=== PATIENT | male | born 1985 | race Caucasian/White ===

== ENCOUNTER 2017-04-01 16:08 | Emergency (ER) | payer MEDICAID ==
[~2017-04-01] VITALS: Ht 157.5 cm; Wt 81.8 kg
[2017-04-01] MEDS ORDERED: ONDANSETRON HCL 4MG/2ML VIAL IV ONE (17:15)
[2017-04-01] MEDS ORDERED: MORPHINE SULFATE 10 MG/ML CPJ IV ONE (17:15)
[2017-04-01 19:30] VITALS: BP 112/70
== END 2017-04-01 19:35 | disposition home or self-care (01) ==
LOC: ER 16:41
DX: S20.211A Contusion of right front wall of thorax, initial encounter (principal); J45.909 Unspecified asthma, uncomplicated; W01.0XXA Fall on same level from slipping, tripping and stumbling without subsequent striking against object, initial encounter; Y93.89 Activity, other specified; Y92.89 Other specified places as the place of occurrence of the external cause; Y99.8 Other external cause status
CPT/HCPCS: 71100; 96374; 96375; 99284; J2270; J2405; Z7610

== ENCOUNTER 2018-05-21 22:55 | Inpatient (IN) | payer MEDICAID ==
[~2018-05-21] VITALS: Ht 157.5 cm; Wt 86.2 kg
[2018-05-21] MEDS ORDERED: METHYLPREDNISOLONE SOD SUCC 125 MG/2 ML VIAL IV STA (23:12)
[2018-05-21] MEDS ORDERED: MAGNESIUM 2 G PREMIX 50 ML IV ONE (23:15)
[2018-05-21] MEDS ORDERED: IPRATROPIUM/ALBUTEROL 0.5-3(2.5)MG/3ML NEB HHN ONE (23:15)
[2018-05-21 23:52] LABS: BASOPHILS % 0.7 % (0.0-2.0); EOSINOPHILS % 2.8 % (0.0-5.0); HEMATOCRIT. 44.1 % (42.0-52.0); HEMOGLOBIN. 14.6 g/dL (14.0-18.0); LYMPHOCYTES % 15.7 % (20.0-50.0); MEAN CORPUSCULAR HEMOGLOBIN 28.7 pg (28.0-32.0); MEAN CORPUSCULAR VOLUME 86.8 fL (80.0-94.0); MEAN PLATELET VOLUME 7.5 fl (7.4-10.4); MONOCYTES % 3.6 % (2.0-8.0); NEUTROPHILS % 77.2 % (40.0-76.0); PLATELET 395 x1000/uL (130-400); RED BLOOD CELL COUNT 5.08 mill/uL (4.7-6.1); RED CELL DISTRIBUTION WIDTH 15.1 % (11.6-14.6)
[2018-05-21 23:59] LABS: CHLORIDE 106 mEq/L (98-107)
[2018-05-22] MEDS ORDERED: IPRATROPIUM/ALBUTEROL 0.5-3(2.5)MG/3ML NEB HHN ONE (00:30)
[2018-05-22] MEDS ORDERED: POTASSIUM CHLORIDE 20MEQ/PACKET PO SCH (00:45)
[2018-05-22] MEDS ORDERED: ALBUTEROL (0.083%) 2.5MG/3ML NEB HHN ONE (02:45)
[2018-05-22 08:45] VITALS: BP 107/71
[2018-05-22] MEDS ORDERED: ALBUTEROL INH (09:14)
[2018-05-22] MEDS ORDERED: FLUT1DIS3 INH (09:18)
[2018-05-22] MEDS ORDERED: P20 MT (09:18)
[2018-05-22] MEDS ORDERED: ALBU18HF2 IH (09:18)
[2018-05-22 09:39] VITALS: BP 107/71
[2018-05-22] MEDS ORDERED: AZITHROMYCIN 500 MG TABLET PO SCH (09:45)
[2018-05-22] MEDS ORDERED: IPRATROPIUM/ALBUTEROL 0.5-3(2.5)MG/3ML NEB HHN PRN (09:45)
[2018-05-22] MEDS ORDERED: GUAIFENESIN-DM 200MG-20MG/10ML UDC PO PRN (09:45)
[2018-05-22] MEDS: METHYLPREDNISOLONE SOD SUCC 40 MG/ML VIAL IV SCH ×3 (10:45→21:37)
[2018-05-22 12:00] VITALS: BP 121/78
[2018-05-22] MEDS: IPRATROPIUM/ALBUTEROL 0.5-3(2.5)MG/3ML NEB HHN SCH ×2 (14:09→20:40)
[2018-05-22 14:36] LABS: CLARITY URINE TURBID (CLEAR); COLOR URINE YELLOW (YELLOW); KETONES URINE 1+ (NEGATIVE); LEUKOCYTE ESTERASE URINE NEGATIVE (NEGATIVE); NITRITE URINE NEGATIVE (NEGATIVE); OCCULT BLOOD URINE NEGATIVE (NEGATIVE); PROTEIN URINE NEGATIVE (NEGATIVE); SPECIFIC GRAVITY URINE 1.029 (1.005-1.030); UROBILINOGEN URINE 0.2 E.U./dL (0.2-1.0)
[2018-05-22 15:21] LABS: *AMPHETAMINES SCREEN URINE NEGATIVE (NEGATIVE); *BARBITURATES SCREEN URINE NEGATIVE (NEGATIVE); *BENZODIAZEPINES SCREEN URINE NEGATIVE (NEGATIVE); *COCAINE SCREEN URINE NEGATIVE (NEGATIVE); METHADONE URINE SCREEN NEGATIVE (NEGATIVE); OPIATES URINE SCREEN NEGATIVE (NEGATIVE)
[2018-05-22 15:22] LABS: CANNABINOID URINE SCREEN PRESUMTIVE POSITIVE (NEGATIVE); PHENCYCLIDINE URINE SCREEN NEGATIVE (NEGATIVE)
[2018-05-22 16:00] VITALS: BP 128/80
[2018-05-22] MEDS: ACETAMINOPHEN 650MG/20.3ML UDC PO PRN (18:20)
[2018-05-22 20:00] VITALS: BP 115/78
[2018-05-22] MEDS: MONTELUKAST SODIUM 10MG TABLET PO SCH (21:37)
[2018-05-23] VITALS: BP 117/63
[2018-05-23] MEDS: IPRATROPIUM/ALBUTEROL 0.5-3(2.5)MG/3ML NEB HHN SCH ×6 (00:35→21:34)
[2018-05-23 04:00] VITALS: BP 114/78
[2018-05-23] MEDS: METHYLPREDNISOLONE SOD SUCC 40 MG/ML VIAL IV SCH ×3 (05:57→21:03)
[2018-05-23 07:14] LABS: BASOPHILS % 0.2 % (0.0-2.0); HEMATOCRIT. 42.9 % (42.0-52.0); HEMOGLOBIN. 14.3 g/dL (14.0-18.0); LYMPHOCYTES % 9.6 % (20.0-50.0); MEAN CORPUSCULAR HEMOGLOBIN 28.9 pg (28.0-32.0); MEAN PLATELET VOLUME 7.9 fl (7.4-10.4); MONOCYTES % 2.4 % (2.0-8.0); NEUTROPHILS % 87.8 % (40.0-76.0); PLATELET 402 x1000/uL (130-400); RED BLOOD CELL COUNT 4.93 mill/uL (4.7-6.1); RED CELL DISTRIBUTION WIDTH 15.2 % (11.6-14.6)
[2018-05-23 07:40] LABS: CHLORIDE 105 mEq/L (98-107)
[2018-05-23 08:00] VITALS: BP 116/70
[2018-05-23] MEDS: AZITHROMYCIN 250 MG TABLET PO SCH (08:25)
[2018-05-23 16:00] VITALS: BP 120/85
[2018-05-23] MEDS: LORATADINE 10MG TABLET PO SCH (19:18)
[2018-05-23] MEDS: ACETAMINOPHEN 650MG/20.3ML UDC PO PRN (19:50)
[2018-05-23 20:00] VITALS: BP 111/78
[2018-05-23] MEDS: MONTELUKAST SODIUM 10MG TABLET PO SCH (20:00)
[2018-05-23] MEDS ORDERED: FAMOTIDINE 20MG TABLET PO SCH (21:00)
[2018-05-24] VITALS: BP 116/83
[2018-05-24] MEDS: IPRATROPIUM/ALBUTEROL 0.5-3(2.5)MG/3ML NEB HHN SCH ×4 (02:34→07:54)
[2018-05-24 04:00] VITALS: BP 120/69
[2018-05-24] MEDS: METHYLPREDNISOLONE SOD SUCC 40 MG/ML VIAL IV SCH (05:12)
[2018-05-24 06:21] LABS: HEMATOCRIT. 44.4 % (42.0-52.0); HEMOGLOBIN. 14.6 g/dL (14.0-18.0); MEAN CORPUSCULAR HEMOGLOBIN 28.7 pg (28.0-32.0); MEAN CORPUSCULAR VOLUME 87.5 fL (80.0-94.0); MEAN PLATELET VOLUME 8.1 fl (7.4-10.4); PLATELET 418 x1000/uL (130-400); RED BLOOD CELL COUNT 5.08 mill/uL (4.7-6.1); RED CELL DISTRIBUTION WIDTH 15.6 % (11.6-14.6)
[2018-05-24 06:24] LABS: CHLORIDE 101 mEq/L (98-107)
[2018-05-24 08:00] VITALS: BP 122/81
[2018-05-24] MEDS: AZITHROMYCIN 250 MG TABLET PO SCH (08:34)
[2018-05-24] MEDS: LORATADINE 10MG TABLET PO SCH (08:34)
[2018-05-24 11:28] LABS: PLATELET ESTIMATE SLIGHTLY INCREASED
== END 2018-05-24 10:55 | disposition home or self-care (01) | DRG 141 ==
LOC: ER 22:55 → 6EST 05-22 02:48 → ENRESERV 05-22 07:29
PROVIDERS: ADMIT Internal Medicine; ATTEND Internal Medicine
DX: J45.901 Unspecified asthma with (acute) exacerbation (principal); E66.9 Obesity, unspecified; F12.90 Cannabis use, unspecified, uncomplicated; Z68.34 Body mass index [BMI] 34.0-34.9, adult
CPT/HCPCS: 36415; 71045; 80048; 80305; 83036; 93005; 94640; 96365; 96375; 99285; J2920; J2930; J3475; J7611; J7620

== ENCOUNTER 2019-02-08 14:44 | Emergency (ER) | payer MEDICAID, OTHER ==
[~2019-02-08] VITALS: Ht 160 cm; Wt 82.0 kg
[~2019-02-08 14:44] MED LIST: ALBU18HF2 IH; ALBUTEROL INH; FLUT1DIS3 INH; P20 MT
[2019-02-08] MEDS ORDERED: METHYLPREDNISOLONE SOD SUCC 125 MG/2 ML VIAL IV STA (14:55)
[2019-02-08] MEDS ORDERED: SODIUM CHLORIDE 0.9% 1,000 ML IV ONE ×2 (14:55→15:29)
[2019-02-08] MEDS ORDERED: IPRATROPIUM BROMIDE (0.02%) 0.5MG/2.5ML NEB HHN STA ×2 (14:55→18:05)
[2019-02-08] MEDS ORDERED: ALBUTEROL (0.083%) 2.5MG/3ML NEB HHN STA ×2 (14:55→18:05)
[2019-02-08 15:12] LABS: BASOPHILS % 0.7 % (0.0-2.0); EOSINOPHILS % 1.1 % (0.0-5.0); HEMATOCRIT. 45.2 % (42.0-52.0); HEMOGLOBIN. 15.2 g/dL (14.0-18.0); LYMPHOCYTES % 15.4 % (20.0-50.0); MEAN CORPUSCULAR HEMOGLOBIN 28.9 pg (28.0-32.0); MEAN CORPUSCULAR VOLUME 85.8 fL (80.0-94.0); MEAN PLATELET VOLUME 7.4 fl (7.4-10.4); MONOCYTES % 4.7 % (2.0-8.0); NEUTROPHILS % 78.1 % (40.0-76.0); PLATELET 397 x1000/uL (130-400); RED BLOOD CELL COUNT 5.27 mill/uL (4.7-6.1); RED CELL DISTRIBUTION WIDTH 15.1 % (11.6-14.6)
[2019-02-08 15:16] LABS: CHLORIDE 107 mEq/L (98-107)
[2019-02-08] MEDS ORDERED: LEVOFLOXACIN 500MG PREMIX 100 ML IV ONE (16:45)
[2019-02-08 18:35] VITALS: BP 119/68
== END 2019-02-08 19:00 | disposition short-term general hospital (02) ==
LOC: ER 14:44 → CANBEDREQ 21:21
DX: J45.901 Unspecified asthma with (acute) exacerbation (principal); R65.10 Systemic inflammatory response syndrome (SIRS) of non-infectious origin without acute organ dysfunction
CPT/HCPCS: 36415; 71045; 80048; 83880; 84484; 85025; 87040; 93005; 94640; 94644; 96365; 96375; 99291; J1956; J2930; J7030; J7611; Z7610

== ENCOUNTER 2019-05-01 00:40 | Emergency (ER) | payer SELFPAY ==
[~2019-05-01] VITALS: Ht 160 cm; Wt 84.0 kg
[2019-05-01] MEDS ORDERED: MAGNESIUM 2 G PREMIX 50 ML IV STA (02:20)
[2019-05-01] MEDS ORDERED: METHYLPREDNISOLONE SOD SUCC 125 MG/2 ML VIAL IV STA (02:20)
[2019-05-01] MEDS ORDERED: IPRATROPIUM BROMIDE (0.02%) 0.5MG/2.5ML NEB HHN STA (02:20)
[2019-05-01] MEDS ORDERED: ALBUTEROL (0.083%) 2.5MG/3ML NEB HHN STA (02:20)
[2019-05-01] MEDS ORDERED: SODIUM CHLORIDE 0.9% 1,000 ML IV ONE (02:30)
[2019-05-01 04:35] VITALS: BP 115/75
== END 2019-05-01 04:37 | disposition home or self-care (01) ==
LOC: ER 00:40
DX: J45.901 Unspecified asthma with (acute) exacerbation (principal)
CPT/HCPCS: 94644; 96365; 96366; 96375; 99285; J2930; J3475; J7030; J7611; Z7610

== ENCOUNTER 2019-05-27 09:39 | Inpatient (IN) | payer MEDICAID, OTHER ==
[~2019-05-27] VITALS: Ht 190.5 cm; Wt 85.3 kg
[2019-05-27] MEDS ORDERED: PREDNISONE 20MG TABLET PO STA (10:49)
[2019-05-27] MEDS ORDERED: IPRATROPIUM BROMIDE (0.02%) 0.5MG/2.5ML NEB HHN STA (10:49)
[2019-05-27] MEDS ORDERED: ALBUTEROL (0.083%) 2.5MG/3ML NEB HHN STA (10:49)
[2019-05-27] MEDS ORDERED: IPRATROPIUM/ALBUTEROL 0.5-3(2.5)MG/3ML NEB HHN ONE (12:45)
[2019-05-27 14:13] LABS: BASOPHILS % 0.8 % (0.0-2.0); EOSINOPHILS % 0.5 % (0.0-5.0); HEMATOCRIT. 44.7 % (42.0-52.0); HEMOGLOBIN. 14.7 g/dL (14.0-18.0); LYMPHOCYTES % 11.3 % (20.0-50.0); MEAN CORPUSCULAR HEMOGLOBIN 28.6 pg (28.0-32.0); MEAN PLATELET VOLUME 7.7 fl (7.4-10.4); NEUTROPHILS % 86.4 % (40.0-76.0); PLATELET 417 x1000/uL (130-400); RED BLOOD CELL COUNT 5.14 mill/uL (4.7-6.1); RED CELL DISTRIBUTION WIDTH 14.8 % (11.6-14.6)
[2019-05-27 14:22] LABS: CHLORIDE 106 mEq/L (98-107)
[2019-05-27] MEDS ORDERED: DOCUSATE SODIUM 100MG CAPSULE PO PRN (17:45)
[2019-05-27] MEDS ORDERED: HYDROCODONE/ACETAMINOPHEN 10/325MG TABLET PO PRN (17:45)
[2019-05-27] MEDS ORDERED: MAGNESIUM/ALUMINUM HYDROXIDE/SIMETHICONE 30ML UDC PO PRN (17:45)
[2019-05-27] MEDS ORDERED: ACETAMINOPHEN 325MG TABLET PO PRN (17:45)
[2019-05-27] MEDS ORDERED: IPRATROPIUM/ALBUTEROL 0.5-3(2.5)MG/3ML NEB HHN PRN (17:45)
[2019-05-27] MEDS ORDERED: DIPHENHYDRAMINE 50MG/ML VIAL IV PRN (17:45)
[2019-05-27] MEDS ORDERED: ONDANSETRON HCL 4MG/2ML INJ IV PRN (17:45)
[2019-05-27] MEDS ORDERED: ACETAMINOPHEN 650MG/20.3ML UDC GT PRN (17:45)
[2019-05-27] MEDS ORDERED: NA PHOS,M-B/NA PHOS,DI-BA ENEMA 118ML PR PRN (17:45)
[2019-05-27] MEDS ORDERED: IPRATROPIUM/ALBUTEROL 0.5-3(2.5)MG/3ML NEB HHN SCH (17:45)
[2019-05-27] MEDS ORDERED: GUAIFENESIN 200MG/10ML SUGAR FREE UDC PO PRN (17:45)
[2019-05-27] MEDS ORDERED: HYDROCODONE/ACETAMINOPHEN 5/325MG TABLET PO PRN (17:45)
[2019-05-27] MEDS ORDERED: CLONIDINE 0.1MG TABLET PO PRN (17:45)
[2019-05-27] MEDS ORDERED: ACETAMINOPHEN 650MG SUPP PR PRN (17:45)
[2019-05-27] MEDS ORDERED: METHYLPREDNISOLONE SOD SUCC 125 MG/2 ML VIAL IV NR (18:15)
[2019-05-27] MEDS: ENOXAPARIN 40MG/0.4ML SYR SUBCUT SCH (18:18)
[2019-05-27 21:30] VITALS: BP 129/88
[2019-05-27] MEDS: METHYLPREDNISOLONE SOD SUCC 125 MG/2 ML VIAL IV SCH (23:15)
[2019-05-28] VITALS: BP 128/78
[2019-05-28 04:00] VITALS: BP 129/74
[2019-05-28] MEDS: METHYLPREDNISOLONE SOD SUCC 125 MG/2 ML VIAL IV SCH ×3 (06:09→17:07)
[2019-05-28] MEDS: SODIUM CHLORIDE 0.9% INJ 3ML FLUSH IVF SCH ×2 (06:10→14:34)
[2019-05-28 07:02] LABS: BASOPHILS % 0.2 % (0.0-2.0); HEMATOCRIT. 44.1 % (42.0-52.0); HEMOGLOBIN. 14.7 g/dL (14.0-18.0); LYMPHOCYTES % 20.7 % (20.0-50.0); MEAN CORPUSCULAR VOLUME 87.1 fL (80.0-94.0); MEAN PLATELET VOLUME 7.7 fl (7.4-10.4); MONOCYTES % 0.6 % (2.0-8.0); NEUTROPHILS % 78.5 % (40.0-76.0); PLATELET 405 x1000/uL (130-400); RED BLOOD CELL COUNT 5.06 mill/uL (4.7-6.1); RED CELL DISTRIBUTION WIDTH 14.9 % (11.6-14.6)
[2019-05-28 07:21] LABS: CHLORIDE 105 mEq/L (98-107)
[2019-05-28 07:30] VITALS: BP 125/87
[2019-05-28 07:37] LABS: LDL CHOLESTEROL 174 mg/dL (5-100)
[2019-05-28 07:38] LABS: HDL CHOLESTEROL 46 mg/dL (40-59)
[2019-05-28 12:30] VITALS: BP 139/86
[2019-05-28] MEDS ORDERED: ALBUTEROL (0.083%) 2.5MG/3ML NEB HHN PRN (16:00)
[2019-05-28] MEDS ORDERED: ALBUTEROL (0.083%) 2.5MG/3ML NEB HHN SCH (16:00)
[2019-05-28] MEDS ORDERED: MONTELUKAST SODIUM 10MG TABLET PO SCH (17:00)
[2019-05-28] MEDS: AZITHROMYCIN 500 MG TABLET PO SCH (17:06)
[2019-05-28] MEDS: ENOXAPARIN 40MG/0.4ML SYR SUBCUT SCH (17:07)
[2019-05-28 17:30] VITALS: BP 121/81
[2019-05-28 20:00] VITALS: BP 118/85
[2019-05-28] MEDS: FLUTICASONE PROPIONATE 50MCG/SPRAY BOTTLE BOTHNSTRLS SCH (21:47)
[2019-05-28] MEDS: OXYMETAZOLINE HCL NASAL SPRAY 15ML BOTHNSTRLS SCH (21:49)
[2019-05-28] MEDS: SODIUM CHLORIDE 45ML SPRAY NS SCH (21:51)
[2019-05-28] MEDS: ALBUTEROL (0.083%) 2.5MG/3ML NEB HHN SCH (22:16)
[2019-05-29] VITALS: BP 120/87
[2019-05-29] MEDS: METHYLPREDNISOLONE SOD SUCC 125 MG/2 ML VIAL IV SCH ×3 (00:47→12:35)
[2019-05-29] MEDS: ACETYLCYSTEINE 100MG/ML 10% VIAL 4ML INH SCH ×2 (01:59→07:44)
[2019-05-29] MEDS: ALBUTEROL (0.083%) 2.5MG/3ML NEB HHN SCH ×4 (02:03→11:54)
[2019-05-29 04:00] VITALS: BP 115/82
[2019-05-29] MEDS: SODIUM CHLORIDE 0.9% INJ 3ML FLUSH IVF SCH ×2 (05:27→15:30)
[2019-05-29 08:00] VITALS: BP 107/59
[2019-05-29] MEDS: AZITHROMYCIN 500 MG TABLET PO SCH (08:31)
[2019-05-29] MEDS: SODIUM CHLORIDE 45ML SPRAY NS SCH ×2 (08:31→12:36)
[2019-05-29] MEDS: OXYMETAZOLINE HCL NASAL SPRAY 15ML BOTHNSTRLS SCH (08:31)
[2019-05-29] MEDS: FLUTICASONE PROPIONATE 50MCG/SPRAY BOTTLE BOTHNSTRLS SCH (08:32)
[2019-05-29 12:00] VITALS: BP 118/83
[2019-05-29 16:00] VITALS: BP 102/73
[2019-05-29] MEDS ORDERED: P50 MT (16:00)
[2019-05-29] MEDS ORDERED: MONT10TA21 MT (16:01)
[2019-05-29 16:21] VITALS: BP 102/73
== END 2019-05-29 17:07 | disposition home or self-care (01) | DRG 141 ==
LOC: ER 10:09 → 6EST 16:33 → EDBEDREQTM 17:02 → EDBEDREQ 17:02 → ENRESERV 19:25
PROVIDERS: ADMIT Family Medicine; ATTEND Family Medicine
DX: J45.41 Moderate persistent asthma with (acute) exacerbation (principal); J30.9 Allergic rhinitis, unspecified; Z87.01 Personal history of pneumonia (recurrent); Z79.899 Other long term (current) drug therapy
CPT/HCPCS: 36415; 71045; 80053; 80061; 85025; 94640; 94644; 99285; J1650; J2930; J7512; J7608; J7611; J7620

== ENCOUNTER 2019-10-10 06:24 | Inpatient (IN) | payer MEDICAID ==
[~2019-10-10] VITALS: Ht 170.2 cm; Wt 90.7 kg
[~2019-10-10 06:24] MED LIST changes: -ALBU18HF2 IH
[2019-10-10] MEDS ORDERED: IPRATROPIUM BROMIDE (0.02%) 0.5MG/2.5ML NEB HHN STA (06:37)
[2019-10-10] MEDS ORDERED: METHYLPREDNISOLONE SOD SUCC 125 MG/2 ML VIAL IV STA (06:37)
[2019-10-10] MEDS ORDERED: SODIUM CHLORIDE 0.9% 1,000 ML IV ONE (06:37)
[2019-10-10] MEDS ORDERED: SUCCINYLCHOLINE CHLORIDE 200MG/10ML IV ONE ×2 (06:45→07:16)
[2019-10-10] MEDS ORDERED: ETOMIDATE 2MG/ML 10ML VIAL IV ONE ×2 (06:45→07:16)
[2019-10-10] MEDS ORDERED: MAGNESIUM 2 G PREMIX 50 ML IV ONE (06:45)
[2019-10-10] MEDS ORDERED: PROPOFOL 10MG/ML 100ML 100 ML IV ONE ×3 (06:45→13:01)
[2019-10-10] MEDS ORDERED: ALBUTEROL (0.083%) 2.5MG/3ML NEB HHN SCH ×2 (07:00→12:15)
[2019-10-10] MEDS ORDERED: MIDAZOLAM HCL 50 MG in DEXTROSE 5% WATER 40 ML IV ONE (08:00)
[2019-10-10 08:26] LABS: BASOPHILS % 0.8 % (0.0-2.0); EOSINOPHILS % 6.5 % (0.0-5.0); HEMATOCRIT. 49.2 % (42.0-52.0); HEMOGLOBIN. 15.4 g/dL (14.0-18.0); LYMPHOCYTES % 48.5 % (20.0-50.0); MEAN CORPUSCULAR HEMOGLOBIN 29.5 pg (28.0-32.0); MEAN CORPUSCULAR VOLUME 94.2 fL (80.0-94.0); MEAN PLATELET VOLUME 9.4 fl (7.4-10.4); MONOCYTES % 9.8 % (2.0-8.0); NEUTROPHILS % 34.4 % (40.0-76.0); PLATELET 358 x1000/uL (130-400); RED BLOOD CELL COUNT 5.23 mill/uL (4.7-6.1); RED CELL DISTRIBUTION WIDTH 15.9 % (11.6-14.6)
[2019-10-10 08:34] LABS: CHLORIDE 110 mEq/L (98-107)
[2019-10-10 08:35] LABS: PROTHROMBIN TIME 10.7 sec (9.6-11.0)
[2019-10-10] MEDS ORDERED: LORAZEPAM 2MG/ML CPJ IV ONE (09:45)
[2019-10-10] MEDS ORDERED: FENTANYL CITRATE/PF 1,000 MCG in SODIUM CHLORIDE 0.9% 80 ML IV PRN ×2 (10:45→11:00)
[2019-10-10 11:15] LABS: *AMPHETAMINES SCREEN URINE NEGATIVE (NEGATIVE); *BARBITURATES SCREEN URINE NEGATIVE (NEGATIVE); *BENZODIAZEPINES SCREEN URINE PRESUMTIVE POSITIVE (NEGATIVE); *COCAINE SCREEN URINE NEGATIVE (NEGATIVE); METHADONE URINE SCREEN NEGATIVE (NEGATIVE); OPIATES URINE SCREEN NEGATIVE (NEGATIVE)
[2019-10-10 11:16] LABS: CANNABINOID URINE SCREEN PRESUMTIVE POSITIVE (NEGATIVE); PHENCYCLIDINE URINE SCREEN NEGATIVE (NEGATIVE)
[2019-10-10] MEDS ORDERED: ALBUTEROL (0.083%) 2.5MG/3ML NEB HHN STA (12:07)
[2019-10-10] MEDS ORDERED: EPINEPHRINE 1:1000 1 MG/ML AMP IM ONE (12:15)
[2019-10-10 12:51] LABS: BG BASE EXCESS -5.6 mmol/L (-2.0-2.0); BG CARBOXYHEMOGLOBIN 0.2 % (0.5-1.5); BG DEOXYHEMOGLOBIN 0.1 % (0.0-5.0); BG FRACTION INSPIRED OXYGEN 100; BG HCO3 ACT 21.5 mmol/L (22.0-26.0); BG METHEMOGLOBIN 0.4 % (0.0-1.5); BG OXYGEN SATURATION 99.9 % (92.0-98.5); BG OXYHEMOGLOBIN 99.3 % (94.0-97.0); BG PCO2 48.2 mmHg (35.0-45.0); BG PH 7.268 (7.350-7.450); BG PO2 584.5 mmHg (75.0-100.0); BG SAMPLE SITE RIGHT RADIAL; BG TIDAL VOLUME(mL) 500 mL; BG TOTAL HEMOGLOBIN 14.1 g/dL (12.0-18.0); BG VENT MODE VENT - A/C; BG VENT RATE 16 set
[2019-10-10] MEDS ORDERED: PROPOFOL 10MG/ML 100ML 100 ML IV PRN (13:15)
[2019-10-10] MEDS ORDERED: IPRATROPIUM/ALBUTEROL 0.5-3(2.5)MG/3ML NEB HHN PRN (13:15)
[2019-10-10] MEDS: METHYLPREDNISOLONE SOD SUCC 125 MG/2 ML VIAL IV SCH ×2 (14:18→14:23)
[2019-10-10] MEDS: FENTANYL CITRATE/PF 1,000 MCG in SODIUM CHLORIDE 0.9% 80 ML IV PRN (14:24)
[2019-10-10] MEDS ORDERED: ONDANSETRON HCL 4MG/2ML INJ IV PRN (16:45)
[2019-10-10] MEDS ORDERED: PANTOPRAZOLE SODIUM 40 MG/VIAL IV SCH (16:45)
[2019-10-10] MEDS ORDERED: ACETAMINOPHEN 650MG SUPP PR PRN (16:45)
[2019-10-10 17:54] LABS: CLARITY URINE TURBID (CLEAR); COLOR URINE DK YELLOW (YELLOW); KETONES URINE 1+ (NEGATIVE); LEUKOCYTE ESTERASE URINE TRACE (NEGATIVE); NITRITE URINE NEGATIVE (NEGATIVE); OCCULT BLOOD URINE 3+ (NEGATIVE); PH URINE 5.5 (4.5-8.0); PROTEIN URINE 1+ (NEGATIVE); SPECIFIC GRAVITY URINE 1.025 (1.005-1.030); UROBILINOGEN URINE 0.2 E.U./dL (0.2-1.0)
[2019-10-10] MEDS: LACTATED RINGERS 1,000 ML IV SCH ×2 (19:07→20:20)
[2019-10-10] MEDS: ENOXAPARIN 40MG/0.4ML SYR SUBCUT SCH (20:00)
[2019-10-10] MEDS: IPRATROPIUM/ALBUTEROL 0.5-3(2.5)MG/3ML NEB HHN SCH (20:18)
[2019-10-10] MEDS: MONTELUKAST SODIUM 10MG TABLET PO SCH (20:20)
[2019-10-11] MEDS: IPRATROPIUM/ALBUTEROL 0.5-3(2.5)MG/3ML NEB HHN SCH ×4 (02:00→20:15)
[2019-10-11] MEDS: FAMOTIDINE 20MG/2ML VIAL IV SCH ×2 (02:47→09:00)
[2019-10-11] MEDS: METHYLPREDNISOLONE SOD SUCC 125 MG/2 ML VIAL IV SCH ×3 (02:47→16:28)
[2019-10-11 05:41] LABS: BASOPHILS % 0.1 % (0.0-2.0); HEMATOCRIT. 37.8 % (42.0-52.0); HEMOGLOBIN. 12.8 g/dL (14.0-18.0); LYMPHOCYTES % 9.3 % (20.0-50.0); MEAN CORPUSCULAR HEMOGLOBIN 29.5 pg (28.0-32.0); MEAN CORPUSCULAR VOLUME 87.6 fL (80.0-94.0); MEAN PLATELET VOLUME 7.9 fl (7.4-10.4); MONOCYTES % 2.3 % (2.0-8.0); NEUTROPHILS % 88.3 % (40.0-76.0); PLATELET 287 x1000/uL (130-400); RED BLOOD CELL COUNT 4.32 mill/uL (4.7-6.1)
[2019-10-11 05:54] LABS: CHLORIDE 106 mEq/L (98-107)
[2019-10-11 06:01] LABS: PHOSPHORUS 3.1 mg/dL (2.5-4.9)
[2019-10-11 07:52] LABS: BG BASE EXCESS -0.1 mmol/L (-2.0-2.0); BG CARBOXYHEMOGLOBIN 0.1 % (0.5-1.5); BG DEOXYHEMOGLOBIN 1.7 % (0.0-5.0); BG FRACTION INSPIRED OXYGEN 45; BG HCO3 ACT 24.2 mmol/L (22.0-26.0); BG METHEMOGLOBIN 0.7 % (0.0-1.5); BG OXYGEN SATURATION 98.3 % (92.0-98.5); BG OXYHEMOGLOBIN 97.5 % (94.0-97.0); BG PCO2 38.4 mmHg (35.0-45.0); BG PH 7.418 (7.350-7.450); BG PO2 115.1 mmHg (75.0-100.0); BG SAMPLE SITE RIGHT RADIAL; BG TIDAL VOLUME(mL) 550 mL; BG TOTAL HEMOGLOBIN 13.3 g/dL (12.0-18.0); BG VENT MODE VENT - A/C; BG VENT RATE 18 set
[2019-10-11] MEDS: FENTANYL CITRATE/PF 1,000 MCG in SODIUM CHLORIDE 0.9% 80 ML IV PRN (10:38)
[2019-10-11] MEDS: PROPOFOL 10MG/ML 100ML 100 ML IV PRN ×3 (11:10→16:15)
[2019-10-11] MEDS: LACTATED RINGERS 1,000 ML IV SCH ×2 (12:45→18:27)
[2019-10-11] MEDS: LORATADINE 10MG TABLET PO SCH (16:28)
[2019-10-11] MEDS: LORAZEPAM 2MG/ML CPJ IV PRN (18:28)
[2019-10-11] MEDS: ENOXAPARIN 40MG/0.4ML SYR SUBCUT SCH (18:33)
[2019-10-12] VITALS (11 sets, daily range): BP systolic 101–143; BP diastolic 63–96
[2019-10-12] MEDS: IPRATROPIUM/ALBUTEROL 0.5-3(2.5)MG/3ML NEB HHN SCH ×4 (01:49→20:10)
[2019-10-12 04:52] LABS: BASOPHILS % 0.5 % (0.0-2.0); EOSINOPHILS % 0.1 % (0.0-5.0); HEMATOCRIT. 39.8 % (42.0-52.0); HEMOGLOBIN. 13.2 g/dL (14.0-18.0); LYMPHOCYTES % 6.9 % (20.0-50.0); MEAN CORPUSCULAR HEMOGLOBIN 29.3 pg (28.0-32.0); MEAN CORPUSCULAR VOLUME 88.4 fL (80.0-94.0); MEAN PLATELET VOLUME 7.9 fl (7.4-10.4); MONOCYTES % 6.6 % (2.0-8.0); NEUTROPHILS % 85.9 % (40.0-76.0); PLATELET 293 x1000/uL (130-400); RED CELL DISTRIBUTION WIDTH 14.9 % (11.6-14.6)
[2019-10-12 04:56] LABS: CHLORIDE 106 mEq/L (98-107)
[2019-10-12] MEDS: FAMOTIDINE 20MG/2ML VIAL IV SCH ×3 (06:50→21:35)
[2019-10-12] MEDS: METHYLPREDNISOLONE SOD SUCC 125 MG/2 ML VIAL IV SCH ×4 (06:50→21:36)
[2019-10-12 07:48] LABS: BG BASE EXCESS -0.5 mmol/L (-2.0-2.0); BG CARBOXYHEMOGLOBIN 0.3 % (0.5-1.5); BG DEOXYHEMOGLOBIN 1.3 % (0.0-5.0); BG FRACTION INSPIRED OXYGEN 40; BG HCO3 ACT 22.3 mmol/L (22.0-26.0); BG OXYGEN SATURATION 98.7 % (92.0-98.5); BG OXYHEMOGLOBIN 98.4 % (94.0-97.0); BG PCO2 31.4 mmHg (35.0-45.0); BG PO2 145.1 mmHg (75.0-100.0); BG SAMPLE SITE RIGHT RADIAL; BG TIDAL VOLUME(mL) 550 mL; BG TOTAL HEMOGLOBIN 13.3 g/dL (12.0-18.0); BG VENT MODE VENT - A/C; BG VENT RATE 18 set
[2019-10-12] MEDS: QUETIAPINE FUMARATE 25MG TABLET PO SCH ×3 (08:00→21:35)
[2019-10-12] MEDS: LORAZEPAM 2MG/ML CPJ IV PRN ×3 (08:26→13:30)
[2019-10-12] MEDS: LACTATED RINGERS 1,000 ML IV SCH ×3 (08:45→23:52)
[2019-10-12] MEDS: PROPOFOL 10MG/ML 100ML 100 ML IV PRN (10:10)
[2019-10-12] MEDS ORDERED: FENTANYL CITRATE/PF 1,000 MCG in SODIUM CHLORIDE 0.9% 80 ML IV PRN (10:30)
[2019-10-12] MEDS ORDERED: MIDAZOLAM HCL 100 MG in DEXT 5% WATER 80 ML IV PRN (10:30)
[2019-10-12] MEDS: MONTELUKAST SODIUM 10MG TABLET PO SCH ×2 (11:00→17:00)
[2019-10-12] MEDS: LORATADINE 10MG TABLET PO SCH (11:00)
[2019-10-12] MEDS: MIDAZOLAM HCL 100 MG in DEXT 5% WATER 80 ML IV PRN ×2 (12:56→18:59)
[2019-10-12] MEDS: ENOXAPARIN 40MG/0.4ML SYR SUBCUT SCH (18:19)
[2019-10-13] VITALS (47 sets, daily range): BP systolic 100–133; BP diastolic 60–85
[2019-10-13] MEDS: FENTANYL 1,000 MCG in SODIUM CHLORIDE 0.9% 100 ML IV PRN ×5 (00:04→21:34)
[2019-10-13] MEDS: ACETYLCYSTEINE 100MG/ML 10% VIAL 4ML INH SCH ×2 (00:30→17:12)
[2019-10-13] MEDS: IPRATROPIUM/ALBUTEROL 0.5-3(2.5)MG/3ML NEB HHN SCH ×5 (02:01→20:35)
[2019-10-13] MEDS: MIDAZOLAM HCL 100 MG in DEXT 5% WATER 80 ML IV PRN ×2 (03:24→14:31)
[2019-10-13 05:14] LABS: HEMATOCRIT. 36.4 % (42.0-52.0); HEMOGLOBIN. 12.4 g/dL (14.0-18.0); MEAN CORPUSCULAR HEMOGLOBIN 29.8 pg (28.0-32.0); MEAN CORPUSCULAR VOLUME 87.7 fL (80.0-94.0); MEAN PLATELET VOLUME 8.3 fl (7.4-10.4); PLATELET 308 x1000/uL (130-400); RED BLOOD CELL COUNT 4.15 mill/uL (4.7-6.1); RED CELL DISTRIBUTION WIDTH 15.2 % (11.6-14.6)
[2019-10-13] MEDS: METHYLPREDNISOLONE SOD SUCC 125 MG/2 ML VIAL IV SCH ×3 (05:23→21:01)
[2019-10-13 05:58] LABS: CHLORIDE 107 mEq/L (98-107)
[2019-10-13 07:20] LABS: PLATELET ESTIMATE NORMAL
[2019-10-13] MEDS: LORATADINE 10MG TABLET PO SCH (09:31)
[2019-10-13] MEDS: FAMOTIDINE 20MG/2ML VIAL IV SCH ×2 (09:31→21:01)
[2019-10-13] MEDS: QUETIAPINE FUMARATE 25MG TABLET PO SCH ×2 (09:31→21:01)
[2019-10-13 09:34] LABS: BG BASE EXCESS -3.7 mmol/L (-2.0-2.0); BG CARBOXYHEMOGLOBIN 0.3 % (0.5-1.5); BG DEOXYHEMOGLOBIN 5.7 % (0.0-5.0); BG FRACTION INSPIRED OXYGEN 35; BG METHEMOGLOBIN 0.3 % (0.0-1.5); BG OXYGEN SATURATION 94.3 % (92.0-98.5); BG OXYHEMOGLOBIN 93.7 % (94.0-97.0); BG PCO2 32.1 mmHg (35.0-45.0); BG PH 7.412 (7.350-7.450); BG PO2 73.5 mmHg (75.0-100.0); BG SAMPLE SITE RIGHT RADIAL; BG TIDAL VOLUME(mL) 550 mL; BG TOTAL HEMOGLOBIN 12.5 g/dL (12.0-18.0); BG VENT MODE VENT - A/C; BG VENT RATE 14 set
[2019-10-13] MEDS: LACTATED RINGERS 1,000 ML IV SCH (09:36)
[2019-10-13] MEDS ORDERED: TERBUTALINE SULFATE 1MG/ML VIAL SUBCUT NR (10:00)
[2019-10-13] MEDS ORDERED: VANCOMYCIN 1250MG in DEXTROSE 5% WATER 250ML IV NR (15:00)
[2019-10-13] MEDS: PIPERACILLIN/TAZOBACTAM 3.375 G in DEXT 5% WATER 100 ML IV SCH ×2 (17:10→23:26)
[2019-10-13] MEDS: MONTELUKAST SODIUM 10MG TABLET PO SCH (17:12)
[2019-10-13] MEDS: ENOXAPARIN 40MG/0.4ML SYR SUBCUT SCH (17:12)
[2019-10-14] VITALS (46 sets, daily range): BP systolic 93–132; BP diastolic 56–118
[2019-10-14] MEDS: VANCOMYCIN 1 G PREMIX 200 ML IV SCH ×2 (00:21→09:32)
[2019-10-14] MEDS: IPRATROPIUM/ALBUTEROL 0.5-3(2.5)MG/3ML NEB HHN SCH ×5 (00:30→20:18)
[2019-10-14] MEDS: MIDAZOLAM HCL 100 MG in DEXT 5% WATER 80 ML IV PRN ×3 (00:30→17:07)
[2019-10-14] MEDS: LACTATED RINGERS 1,000 ML IV SCH ×3 (00:31→16:46)
[2019-10-14] MEDS: FENTANYL 1,000 MCG in SODIUM CHLORIDE 0.9% 100 ML IV PRN ×5 (01:29→21:46)
[2019-10-14] MEDS: METHYLPREDNISOLONE SOD SUCC 125 MG/2 ML VIAL IV SCH ×3 (05:25→21:44)
[2019-10-14] MEDS: PIPERACILLIN/TAZOBACTAM 3.375 G in DEXT 5% WATER 100 ML IV SCH ×2 (05:25→12:11)
[2019-10-14 06:16] LABS: HEMATOCRIT. 39.3 % (42.0-52.0); MEAN CORPUSCULAR HEMOGLOBIN 29.3 pg (28.0-32.0); MEAN CORPUSCULAR VOLUME 88.8 fL (80.0-94.0); MEAN PLATELET VOLUME 8.3 fl (7.4-10.4); PLATELET 312 x1000/uL (130-400); RED BLOOD CELL COUNT 4.42 mill/uL (4.7-6.1); RED CELL DISTRIBUTION WIDTH 14.9 % (11.6-14.6)
[2019-10-14 06:25] LABS: CHLORIDE 103 mEq/L (98-107)
[2019-10-14] MEDS: ACETYLCYSTEINE 100MG/ML 10% VIAL 4ML INH SCH ×2 (08:50→14:55)
[2019-10-14] MEDS: RISPERIDONE 1MG TABLET PO SCH ×2 (09:32→20:12)
[2019-10-14] MEDS: LORATADINE 10MG TABLET PO SCH (09:32)
[2019-10-14] MEDS: FAMOTIDINE 20MG/2ML VIAL IV SCH ×2 (09:32→20:12)
[2019-10-14] MEDS: ALPRAZOLAM 0.25 MG TABLET PO SCH ×2 (13:32→21:46)
[2019-10-14 13:48] LABS: PLATELET ESTIMATE NORMAL
[2019-10-14] MEDS: NAFCILLIN SODIUM 1,000 MG in SODIUM CHLORIDE 0.9% 50 ML IV SCH (16:46)
[2019-10-14] MEDS: MONTELUKAST SODIUM 10MG TABLET PO SCH (16:46)
[2019-10-14] MEDS: ENOXAPARIN 40MG/0.4ML SYR SUBCUT SCH (16:49)
[2019-10-15] VITALS (37 sets, daily range): BP systolic 112–162; BP diastolic 64–105
[2019-10-15] MEDS: NAFCILLIN SODIUM 1,000 MG in SODIUM CHLORIDE 0.9% 50 ML IV SCH ×5 (00:17→23:52)
[2019-10-15] MEDS: IPRATROPIUM/ALBUTEROL 0.5-3(2.5)MG/3ML NEB HHN SCH ×5 (00:20→21:04)
[2019-10-15] MEDS: ACETYLCYSTEINE 100MG/ML 10% VIAL 4ML INH SCH ×3 (00:20→16:31)
[2019-10-15] MEDS: FENTANYL 1,000 MCG in SODIUM CHLORIDE 0.9% 100 ML IV PRN ×2 (02:29→12:23)
[2019-10-15] MEDS: MIDAZOLAM HCL 100 MG in DEXT 5% WATER 80 ML IV PRN (03:24)
[2019-10-15] MEDS: LACTATED RINGERS 1,000 ML IV SCH ×2 (03:33→16:02)
[2019-10-15] MEDS: ALPRAZOLAM 0.25 MG TABLET PO SCH ×3 (05:39→22:04)
[2019-10-15] MEDS: METHYLPREDNISOLONE SOD SUCC 125 MG/2 ML VIAL IV SCH ×3 (05:39→22:03)
[2019-10-15 05:54] LABS: BASOPHILS % 0.2 % (0.0-2.0); EOSINOPHILS % 0.2 % (0.0-5.0); HEMATOCRIT. 37.3 % (42.0-52.0); HEMOGLOBIN. 12.7 g/dL (14.0-18.0); LYMPHOCYTES % 9.8 % (20.0-50.0); MEAN PLATELET VOLUME 8.3 fl (7.4-10.4); MONOCYTES % 4.1 % (2.0-8.0); NEUTROPHILS % 85.7 % (40.0-76.0); PLATELET 334 x1000/uL (130-400); RED BLOOD CELL COUNT 4.24 mill/uL (4.7-6.1); RED CELL DISTRIBUTION WIDTH 14.8 % (11.6-14.6)
[2019-10-15 06:16] LABS: CHLORIDE 103 mEq/L (98-107)
[2019-10-15] MEDS: FAMOTIDINE 20MG/2ML VIAL IV SCH ×2 (09:29→22:03)
[2019-10-15] MEDS: LORATADINE 10MG TABLET PO SCH (09:29)
[2019-10-15] MEDS: RISPERIDONE 1MG TABLET PO SCH ×2 (09:29→22:04)
[2019-10-15] MEDS: ACETAMINOPHEN 325MG TABLET PO PRN (10:54)
[2019-10-15 11:42] LABS: BG BASE EXCESS 3.8 mmol/L (-2.0-2.0); BG CARBOXYHEMOGLOBIN 0.3 % (0.5-1.5); BG DEOXYHEMOGLOBIN 3.5 % (0.0-5.0); BG HCO3 ACT 28.3 mmol/L (22.0-26.0); BG METHEMOGLOBIN 0.1 % (0.0-1.5); BG OXYGEN SATURATION 96.5 % (92.0-98.5); BG OXYHEMOGLOBIN 96.1 % (94.0-97.0); BG PCO2 42.6 mmHg (35.0-45.0); BG PH 7.441 (7.350-7.450); BG PO2 84.4 mmHg (75.0-100.0); BG SAMPLE SITE RIGHT RADIAL; BG TOTAL HEMOGLOBIN 13.8 g/dL (12.0-18.0); BG VENT MODE VENT - CPAP
[2019-10-15] MEDS: MONTELUKAST SODIUM 10MG TABLET PO SCH (16:01)
[2019-10-15] MEDS: ENOXAPARIN 40MG/0.4ML SYR SUBCUT SCH (16:58)
[2019-10-15] MEDS: LORAZEPAM 2MG/ML CPJ IV PRN (20:23)
[2019-10-16] VITALS (20 sets, daily range): BP systolic 114–165; BP diastolic 68–98
[2019-10-16] MEDS: ACETYLCYSTEINE 100MG/ML 10% VIAL 4ML INH SCH ×2 (01:17→12:36)
[2019-10-16] MEDS: IPRATROPIUM/ALBUTEROL 0.5-3(2.5)MG/3ML NEB HHN SCH ×7 (01:18→22:20)
[2019-10-16] MEDS: LACTATED RINGERS 1,000 ML IV SCH (02:08)
[2019-10-16] MEDS: LORAZEPAM 2MG/ML CPJ IV PRN ×3 (02:08→11:06)
[2019-10-16] MEDS: METHYLPREDNISOLONE SOD SUCC 125 MG/2 ML VIAL IV SCH ×2 (05:30→05:34)
[2019-10-16] MEDS: ALPRAZOLAM 0.25 MG TABLET PO SCH (05:31)
[2019-10-16] MEDS: NAFCILLIN SODIUM 1,000 MG in SODIUM CHLORIDE 0.9% 50 ML IV SCH ×3 (05:31→20:47)
[2019-10-16 05:53] LABS: HEMATOCRIT. 38.9 % (42.0-52.0); MEAN CORPUSCULAR HEMOGLOBIN 29.4 pg (28.0-32.0); MEAN CORPUSCULAR VOLUME 87.6 fL (80.0-94.0); MEAN PLATELET VOLUME 7.9 fl (7.4-10.4); PLATELET 334 x1000/uL (130-400); RED BLOOD CELL COUNT 4.44 mill/uL (4.7-6.1); RED CELL DISTRIBUTION WIDTH 14.7 % (11.6-14.6)
[2019-10-16 06:08] LABS: CHLORIDE 102 mEq/L (98-107)
[2019-10-16 06:59] LABS: PLATELET ESTIMATE NORMAL
[2019-10-16] MEDS: LORATADINE 10MG TABLET PO SCH (09:49)
[2019-10-16] MEDS: RISPERIDONE 1MG TABLET PO SCH (09:49)
[2019-10-16] MEDS: FAMOTIDINE 20MG/2ML VIAL IV SCH ×2 (09:49→20:47)
[2019-10-16] MEDS: MONTELUKAST SODIUM 10MG TABLET PO SCH (16:45)
[2019-10-16] MEDS: PREDNISONE 20MG TABLET PO SCH (16:45)
[2019-10-16] MEDS: ENOXAPARIN 40MG/0.4ML SYR SUBCUT SCH (18:32)
[2019-10-16] MEDS: ALPRAZOLAM 0.25 MG TABLET PO PRN (21:54)
[2019-10-17] VITALS: BP 115/83
[2019-10-17] MEDS: IPRATROPIUM/ALBUTEROL 0.5-3(2.5)MG/3ML NEB HHN SCH ×5 (01:30→22:20)
[2019-10-17 04:00] VITALS: BP 119/86
[2019-10-17] MEDS: ACETYLCYSTEINE 100MG/ML 10% VIAL 4ML INH SCH ×2 (04:28→11:15)
[2019-10-17] MEDS: NAFCILLIN SODIUM 1,000 MG in SODIUM CHLORIDE 0.9% 50 ML IV SCH ×3 (06:40→17:54)
[2019-10-17 06:44] LABS: HEMATOCRIT. 41.9 % (42.0-52.0); MEAN CORPUSCULAR HEMOGLOBIN 29.3 pg (28.0-32.0); MEAN CORPUSCULAR VOLUME 87.5 fL (80.0-94.0); MEAN PLATELET VOLUME 7.7 fl (7.4-10.4); PLATELET 348 x1000/uL (130-400); RED BLOOD CELL COUNT 4.79 mill/uL (4.7-6.1); RED CELL DISTRIBUTION WIDTH 14.9 % (11.6-14.6)
[2019-10-17 07:54] LABS: CHLORIDE 104 mEq/L (98-107)
[2019-10-17 08:00] VITALS: BP 134/90
[2019-10-17] MEDS: ALPRAZOLAM 0.25 MG TABLET PO PRN ×2 (09:52→20:19)
[2019-10-17] MEDS: PREDNISONE 20MG TABLET PO SCH ×2 (09:52→17:53)
[2019-10-17] MEDS: LORATADINE 10MG TABLET PO SCH (10:33)
[2019-10-17] MEDS: FAMOTIDINE 20MG/2ML VIAL IV SCH (10:34)
[2019-10-17 12:00] VITALS: BP 121/84
[2019-10-17 15:20] LABS: PLATELET ESTIMATE NORMAL
[2019-10-17 16:00] VITALS: BP 142/91
[2019-10-17] MEDS: ENOXAPARIN 40MG/0.4ML SYR SUBCUT SCH (17:53)
[2019-10-17] MEDS: MONTELUKAST SODIUM 10MG TABLET PO SCH (17:53)
[2019-10-17 20:00] VITALS: BP 133/93
[2019-10-17] MEDS: GUAIFENESIN 600MG ER TABLET PO SCH (20:22)
[2019-10-17] MEDS: FAMOTIDINE 20MG TABLET PO SCH (20:22)
[2019-10-18] VITALS: BP 120/78
[2019-10-18] MEDS: NAFCILLIN SODIUM 1,000 MG in SODIUM CHLORIDE 0.9% 50 ML IV SCH ×4 (01:14→18:00)
[2019-10-18] MEDS: IPRATROPIUM/ALBUTEROL 0.5-3(2.5)MG/3ML NEB HHN SCH ×4 (02:17→21:49)
[2019-10-18 04:00] VITALS: BP 124/81
[2019-10-18 07:00] LABS: HEMATOCRIT. 43.7 % (42.0-52.0); HEMOGLOBIN. 14.9 g/dL (14.0-18.0); MEAN CORPUSCULAR HEMOGLOBIN 29.8 pg (28.0-32.0); MEAN CORPUSCULAR VOLUME 87.6 fL (80.0-94.0); MEAN PLATELET VOLUME 7.6 fl (7.4-10.4); PLATELET 398 x1000/uL (130-400); RED BLOOD CELL COUNT 4.99 mill/uL (4.7-6.1); RED CELL DISTRIBUTION WIDTH 14.9 % (11.6-14.6)
[2019-10-18 07:05] LABS: CHLORIDE 102 mEq/L (98-107)
[2019-10-18] MEDS: ALPRAZOLAM 0.25 MG TABLET PO PRN ×2 (08:54→21:09)
[2019-10-18] MEDS: FAMOTIDINE 20MG TABLET PO SCH ×2 (08:54→21:09)
[2019-10-18] MEDS: PREDNISONE 20MG TABLET PO SCH (08:54)
[2019-10-18] MEDS: LORATADINE 10MG TABLET PO SCH (08:54)
[2019-10-18] MEDS: GUAIFENESIN 600MG ER TABLET PO SCH ×2 (09:00→21:09)
[2019-10-18 12:56] LABS: PLATELET ESTIMATE NORMAL
[2019-10-18] MEDS ORDERED: HALOPERIDOL 5MG TABLET PO PRN (15:00)
[2019-10-18] MEDS: MONTELUKAST SODIUM 10MG TABLET PO SCH (18:00)
[2019-10-18] MEDS: ENOXAPARIN 40MG/0.4ML SYR SUBCUT SCH (18:01)
[2019-10-18 20:43] VITALS: BP 114/77
[2019-10-19] VITALS: BP 114/79
[2019-10-19] MEDS: NAFCILLIN SODIUM 1,000 MG in SODIUM CHLORIDE 0.9% 50 ML IV SCH ×4 (01:09→18:22)
[2019-10-19] MEDS: IPRATROPIUM/ALBUTEROL 0.5-3(2.5)MG/3ML NEB HHN SCH ×5 (01:31→21:15)
[2019-10-19] MEDS: ACETAMINOPHEN 325MG TABLET PO PRN ×2 (02:24→13:24)
[2019-10-19 04:00] VITALS: BP 112/73
[2019-10-19] MEDS: ALPRAZOLAM 0.25 MG TABLET PO PRN (05:47)
[2019-10-19 07:45] LABS: HEMATOCRIT. 45.4 % (42.0-52.0); HEMOGLOBIN. 15.4 g/dL (14.0-18.0); MEAN CORPUSCULAR HEMOGLOBIN 29.8 pg (28.0-32.0); MEAN CORPUSCULAR VOLUME 87.9 fL (80.0-94.0); MEAN PLATELET VOLUME 7.3 fl (7.4-10.4); PLATELET 426 x1000/uL (130-400); RED BLOOD CELL COUNT 5.16 mill/uL (4.7-6.1); RED CELL DISTRIBUTION WIDTH 14.9 % (11.6-14.6)
[2019-10-19 07:59] LABS: CHLORIDE 105 mEq/L (98-107)
[2019-10-19 08:00] VITALS: BP 115/85
[2019-10-19] MEDS ORDERED: POTASSIUM CHLORIDE 20MEQ TABLET SR PO SCH (09:00)
[2019-10-19] MEDS ORDERED: PREDNISONE 20MG TABLET PO SCH (09:00)
[2019-10-19] MEDS: LORATADINE 10MG TABLET PO SCH (09:01)
[2019-10-19] MEDS: FAMOTIDINE 20MG TABLET PO SCH ×2 (09:01→21:41)
[2019-10-19] MEDS: GUAIFENESIN 600MG ER TABLET PO SCH ×2 (09:02→21:41)
[2019-10-19] MEDS: RISPERIDONE 1MG TABLET PO SCH (09:23)
[2019-10-19] MEDS ORDERED: POTASSIUM CHLORIDE INJ 40 MEQ in DEXT 5% WATER 500 ML IV SCH (10:00)
[2019-10-19 12:00] VITALS: BP 93/73
[2019-10-19 12:23] LABS: PLATELET ESTIMATE SLIGHTLY INCREASED
[2019-10-19] MEDS: ENOXAPARIN 40MG/0.4ML SYR SUBCUT SCH (18:22)
[2019-10-19] MEDS: MONTELUKAST SODIUM 10MG TABLET PO SCH (18:22)
[2019-10-19 20:00] VITALS: BP 157/82
[2019-10-20] VITALS (7 sets, daily range): BP systolic 96–130; BP diastolic 71–86
[2019-10-20] MEDS: IPRATROPIUM/ALBUTEROL 0.5-3(2.5)MG/3ML NEB HHN SCH ×3 (01:31→14:43)
[2019-10-20] MEDS: ACETAMINOPHEN 325MG TABLET PO PRN ×2 (01:54→10:10)
[2019-10-20] MEDS: FAMOTIDINE 20MG TABLET PO SCH ×2 (08:20→21:46)
[2019-10-20] MEDS: GUAIFENESIN 600MG ER TABLET PO SCH ×2 (08:20→21:46)
[2019-10-20] MEDS: RISPERIDONE 1MG TABLET PO SCH (08:20)
[2019-10-20] MEDS: LORATADINE 10MG TABLET PO SCH (08:22)
[2019-10-20] MEDS ORDERED: SODIUM CHLORIDE 0.9% 500 ML IV ONE (11:30)
[2019-10-20 13:23] LABS: BASOPHILS % 0.3 % (0.0-2.0); EOSINOPHILS % 0.5 % (0.0-5.0); HEMATOCRIT. 43.7 % (42.0-52.0); HEMOGLOBIN. 14.6 g/dL (14.0-18.0); LYMPHOCYTES % 21.3 % (20.0-50.0); MEAN CORPUSCULAR HEMOGLOBIN 29.4 pg (28.0-32.0); MEAN CORPUSCULAR VOLUME 88.1 fL (80.0-94.0); MONOCYTES % 7.6 % (2.0-8.0); NEUTROPHILS % 70.3 % (40.0-76.0); PLATELET 406 x1000/uL (130-400); RED BLOOD CELL COUNT 4.96 mill/uL (4.7-6.1); RED CELL DISTRIBUTION WIDTH 14.9 % (11.6-14.6)
[2019-10-20 13:32] LABS: CHLORIDE 105 mEq/L (98-107)
[2019-10-20] MEDS: CEFAZOLIN 1000MG PREMIX 50 ML IV SCH ×2 (13:55→22:54)
[2019-10-20] MEDS ORDERED: POTASSIUM CHLORIDE 20MEQ/PACKET PO NR (15:15)
[2019-10-20] MEDS: ENOXAPARIN 40MG/0.4ML SYR SUBCUT SCH (17:09)
[2019-10-20] MEDS: MONTELUKAST SODIUM 10MG TABLET PO SCH (17:09)
[2019-10-21] VITALS: BP 101/70
[2019-10-21 04:00] VITALS: BP 107/68
[2019-10-21] MEDS: CEFAZOLIN 1000MG PREMIX 50 ML IV SCH ×2 (05:31→13:35)
[2019-10-21 08:00] VITALS: BP 90/62
[2019-10-21 08:03] LABS: CHLORIDE 106 mEq/L (98-107)
[2019-10-21 08:04] LABS: BASOPHILS % 0.3 % (0.0-2.0); EOSINOPHILS % 1.3 % (0.0-5.0); HEMATOCRIT. 42.4 % (42.0-52.0); HEMOGLOBIN. 14.5 g/dL (14.0-18.0); MEAN CORPUSCULAR VOLUME 87.7 fL (80.0-94.0); MEAN PLATELET VOLUME 7.3 fl (7.4-10.4); MONOCYTES % 7.1 % (2.0-8.0); NEUTROPHILS % 63.3 % (40.0-76.0); PLATELET 394 x1000/uL (130-400); RED BLOOD CELL COUNT 4.83 mill/uL (4.7-6.1)
[2019-10-21] MEDS: FAMOTIDINE 20MG TABLET PO SCH (08:39)
[2019-10-21] MEDS: RISPERIDONE 1MG TABLET PO SCH (08:39)
[2019-10-21] MEDS: LORATADINE 10MG TABLET PO SCH (08:40)
[2019-10-21] MEDS: GUAIFENESIN 600MG ER TABLET PO SCH (11:03)
[2019-10-21 12:00] VITALS: BP 120/79
[2019-10-21] MEDS ORDERED: MONT10TA21 PO (12:06)
[2019-10-21] MEDS ORDERED: RISP1 PO (12:06)
[2019-10-21] MEDS ORDERED: FLUT1DIS3 INH (12:06)
[2019-10-21] MEDS ORDERED: CLAR10 PO (12:06)
[2019-10-21] MEDS ORDERED: ALBU18HF2 IH (12:06)
[2019-10-21] MEDS ORDERED: FAMO20TA8 PO (12:06)
[2019-10-21] MEDS ORDERED: GUAI600T44 PO (12:06)
[2019-10-21] MEDS ORDERED: POTASSIUM CHLORIDE 20MEQ TABLET SR PO NR (12:30)
[2019-10-21 13:03] VITALS: BP 120/79
[2019-10-21 16:00] VITALS: BP 115/82
[2019-10-21] MEDS: MONTELUKAST SODIUM 10MG TABLET PO SCH (17:09)
[2019-10-22] MEDS ORDERED: AMOX-424 MT (08:51)
== END 2019-10-21 17:27 | disposition home or self-care (01) | DRG 720 ==
LOC: ER 06:24 → EDBEDREQTM 07:49 → CVICU 09:24 → EDBEDREQTM 09:29 → EDBEDREQ 09:29 → ENRESERV 10-12 11:13 → CANRESERV 10-12 11:51 → ENRESERV 10-12 11:51 → 6EST 10-16 18:02 → 5WST 10-20 18:26
PROVIDERS: ADMIT Internal Medicine; ATTEND Internal Medicine
PROC: 5A1955Z Respiratory Ventilation, Greater than 96 Consecutive Hours (ICD-10-PCS; principal; 2019-10-10)
PROC: 0BH17EZ Insertion of Endotracheal Airway into Trachea, Via Natural or Artificial Opening (ICD-10-PCS; 2019-10-10)
DX: A41.01 Sepsis due to Methicillin susceptible Staphylococcus aureus (principal); J96.02 Acute respiratory failure with hypercapnia; J45.902 Unspecified asthma with status asthmaticus; G93.40 Encephalopathy, unspecified; E87.2 Acidosis; J15.211 Pneumonia due to Methicillin susceptible Staphylococcus aureus; D72.1 Eosinophilia; F22 Delusional disorders; E78.5 Hyperlipidemia, unspecified; F09 Unspecified mental disorder due to known physiological condition; T38.0X5A Adverse effect of glucocorticoids and synthetic analogues, initial encounter; Z20.828 Contact with and (suspected) exposure to other viral communicable diseases; J45.901 Unspecified asthma with (acute) exacerbation; E87.6 Hypokalemia; F12.90 Cannabis use, unspecified, uncomplicated; F43.10 Post-traumatic stress disorder, unspecified; Z78.1 Physical restraint status; Z79.51 Long term (current) use of inhaled steroids; Z79.899 Other long term (current) drug therapy; Y92.89 Other specified places as the place of occurrence of the external cause
CPT/HCPCS: 36415; 36600; 71045; 71250; 80048; 80053; 80202; 80305; 81003; 82375; 82805; 83880; 84145; 84478; 84484; 85025; 87070; 87804; 93005; 94002; 94003; 94640; 94644; 99291; J0330; J0690; J1630; J1650; J2060; J2250; J2543; J2704; J2930; J3010; J3105; J3370; J3475; J3480; J3490; J7030; J7050; J7060; J7512; J7608; U0003-CS

== ENCOUNTER 2023-07-11 01:58 | Emergency (ER) | payer MEDICAID, OTHER ==
[~2023-07-11] VITALS: Ht 170.2 cm; Wt 112.0 kg
[~2023-07-11 01:58] MED LIST changes: +ALBU18HF2 IH; -ALBUTEROL INH; +AMOX-424 MT; +CLAR10 PO; +FAMO20TA8 PO; +GUAI600T44 PO; +MONT-46 PO; -P20 MT; +RISP1 PO
[2023-07-11 02:02] VITALS: BP 118/76; PULSE 108; RESP 18; TEMP 98.5; O2SAT 98
[2023-07-11] MEDS: ONDANSETRON HCL 4MG/2ML INJ IV STA (02:03)
[2023-07-11 02:18] LABS: BASOPHILS % 0.4 % (0.0-2.0); EOSINOPHILS % 1.2 % (0.0-5.0); HEMATOCRIT. 41.7 % (42.0-52.0); HEMOGLOBIN. 14.1 g/dL (14.0-18.0); LYMPHOCYTES % 25.2 % (20.0-50.0); MEAN CORPUSCULAR HEMOGLOBIN 29.5 pg (28.0-32.0); MEAN CORPUSCULAR HGB CONC 33.8 g/dL (31.0-37.0); MEAN CORPUSCULAR VOLUME 87.3 fL (80.0-94.0); MEAN PLATELET VOLUME 7.4 fl (7.4-10.4); MONOCYTES % 3.9 % (2.0-8.0); NEUTROPHILS % 69.3 % (40.0-76.0); PLATELET 379 x1000/uL (130-400); RED BLOOD CELL COUNT 4.78 mill/uL (4.7-6.1); RED CELL DISTRIBUTION WIDTH 14.4 % (11.6-14.6); WHITE BLOOD COUNT 11.3 x1000/uL (4.5-11.0)
[2023-07-11 02:31] LABS: ACETAMINOPHEN < 2 ug/mL (10-30); ALANINE AMINOTRANSFERASE 44 IU/L (10-49); ALBUMIN 4.8 g/dL (3.2-4.8); ASPARTATE AMINOTRANSFERASE 24 IU/L (<34); BILIRUBIN TOTAL 0.3 mg/dL (0.1-1.0); CALCIUM 8.7 mg/dL (8.7-10.4); CARBON DIOXIDE 22 mEq/L (21-32); CHLORIDE 107 mEq/L (98-107); CREATININE 0.7 mg/dL (0.6-1.3); ETHANOL BLOOD 194 mg/dL (<10); GLUCOSE 159 mg/dL (70-105); POTASSIUM 3.2 mEq/L (3.5-5.1); PROTEIN TOTAL 8.1 g/dL (6.0-8.3); SODIUM 141 mEq/L (136-145); UREA NITROGEN BLOOD 8 mg/dL (9-23)
[2023-07-11] MEDS: SODIUM CHLORIDE 0.9% 1,000 ML IV ONE (03:13)
[2023-07-11] MEDS ORDERED: ONDA4TAB50 MT (06:46)
== END 2023-07-11 08:33 | disposition home or self-care (01) ==
LOC: ER 02:03
DX: F10.129 Alcohol abuse with intoxication, unspecified (principal); R11.2 Nausea with vomiting, unspecified; J45.909 Unspecified asthma, uncomplicated; F12.10 Cannabis abuse, uncomplicated; Y90.6 Blood alcohol level of 120-199 mg/100 ml
CPT/HCPCS: 80053; 80307; 80329; 80320; 85025; 36415; 96361; 96374; 99283; J2405; J7030; G0480

== ENCOUNTER 2025-05-18 11:26 | Inpatient (IN) | payer MEDICAID ==
[2025-05-18] VITALS (12 sets, daily range): BP systolic 126–135; BP diastolic 82–100; PULSE 111–135; RESP 13–25; TEMP 37–37.1; O2SAT 91–97
[~2025-05-18] VITALS: Ht 157.5 cm; Wt 102.5 kg
[~2025-05-18 11:26] MED LIST changes: +ATOR10TA PO; +ONDA4TAB50 MT; +PRED10TA PO
[2025-05-18] MEDS: MAGNESIUM 2 G PREMIX 50 ML IV ONE (12:03)
[2025-05-18] MEDS: METHYLPREDNISOLONE SOD SUCC 125MG/2ML (ACT-O-VIAL) IV ONE (12:03)
[2025-05-18 12:13] LABS: HEMATOCRIT. 43.6 % (42.0-52.0); HEMOGLOBIN. 14.0 g/dL (14.0-18.0); MEAN PLATELET VOLUME 7.8 fl (7.4-10.4); PLATELET 448 x1000/uL (130-400); RED BLOOD CELL COUNT 4.87 mill/uL (4.7-6.1); RED CELL DISTRIBUTION WIDTH 15.3 % (11.6-14.6)
[2025-05-18] MEDS: ALBUTEROL (0.083%) 2.5MG/3ML NEB HHN SCH (12:25)
[2025-05-18] MEDS: IPRATROPIUM BROMIDE (0.02%) 0.5MG/2.5ML NEB HHN SCH (12:25)
[2025-05-18 12:29] LABS: TROPONIN I HIGH SENSITIVITY < 4 ng/L (3.0-53)
[2025-05-18 13:03] LABS: CREATININE 0.8 mg/dL (0.6-1.3); UREA NITROGEN BLOOD 5 mg/dL (9-23)
[2025-05-18 13:04] LABS: ASPARTATE AMINOTRANSFERASE 28 IU/L (<34); PROTEIN TOTAL 8.2 g/dL (6.0-8.3)
[2025-05-18 13:05] LABS: BILIRUBIN DIRECT 0.1 mg/dL (<=3.0); BILIRUBIN TOTAL 0.4 mg/dL (0.1-1.0)
[2025-05-18 13:16] LABS: BAND% 5.0 % (1.0-6.0); EOSINOPHILS % MANUAL 1.0 % (0.0-5.0); LYMPHOCYTES % MANUAL 1.0 % (20.0-50.0); MONOCYTES % MANUAL 1.0 % (2.0-8.0); NEUTROPHILS % MANUAL 92.0 % (45.0-75.0)
[2025-05-18 13:17] LABS: PLATELET ESTIMATE INCREASED
[2025-05-18] MEDS: SODIUM CHLORIDE 0.9% 1,000 ML IV SCH (14:00)
[2025-05-18] MEDS ORDERED: ACETAMINOPHEN 325MG TABLET PO PRN ×2 (14:00)
[2025-05-18] MEDS: LORATADINE 10MG TABLET PO SCH (14:00)
[2025-05-18 15:49] LABS: TROPONIN I HIGH SENSITIVITY 4 ng/L (3.0-53)
[2025-05-18] MEDS: IPRATROPIUM/ALBUTEROL 0.5-3(2.5)MG/3ML NEB HHN PRN (16:53)
[2025-05-18] MEDS: RISPERIDONE 1MG TABLET PO SCH (17:31)
[2025-05-18] MEDS: METHYLPREDNISOLONE SOD SUCC 40MG/ML (ACT-O-VIAL) IV SCH (17:31)
[2025-05-18] MEDS: ENOXAPARIN 30MG/0.3ML SYR SUBCUT SCH (17:44)
[2025-05-18] MEDS: MONTELUKAST SODIUM 10MG TABLET PO SCH (17:44)
[2025-05-18] MEDS: LORAZEPAM 0.5MG TABLET PO PRN (18:49)
[2025-05-18] MEDS: FAMOTIDINE 20MG/2ML VIAL IV SCH (21:05)
[2025-05-18] MEDS: ATORVASTATIN CALCIUM 10MG TABLET PO SCH (21:07)
[2025-05-18] MEDS: SODIUM CHLORIDE 0.9% 500 ML IV NR (21:07)
[2025-05-18] MEDS: GUAIFENESIN 600MG ER TABLET PO SCH (21:07)
[2025-05-19] VITALS (13 sets, daily range): BP systolic 121–146; BP diastolic 83–99; PULSE 96–128; RESP 12–21; TEMP 36.6–37.1; O2SAT 93–100
[2025-05-19] MEDS: ONDANSETRON HCL 4MG/2ML INJ IV PRN (00:52)
[2025-05-19 07:10] LABS: BASOPHILS % 0.1 % (0.0-2.0); EOSINOPHILS % 0.0 % (0.0-5.0); HEMATOCRIT. 39.9 % (42.0-52.0); HEMOGLOBIN. 13.3 g/dL (14.0-18.0); LYMPHOCYTES % 11.2 % (20.0-50.0); MEAN PLATELET VOLUME 7.9 fl (7.4-10.4); MONOCYTES % 2.4 % (2.0-8.0); NEUTROPHILS % 86.3 % (40.0-76.0); PLATELET 392 x1000/uL (130-400); RED BLOOD CELL COUNT 4.56 mill/uL (4.7-6.1); RED CELL DISTRIBUTION WIDTH 14.9 % (11.6-14.6)
[2025-05-19 07:19] LABS: CREATININE 0.8 mg/dL (0.6-1.3); UREA NITROGEN BLOOD 6 mg/dL (9-23)
[2025-05-19 07:20] LABS: PROTEIN TOTAL 7.4 g/dL (6.0-8.3)
[2025-05-19 07:21] LABS: ASPARTATE AMINOTRANSFERASE 16 IU/L (<34)
[2025-05-19 07:22] LABS: BILIRUBIN TOTAL 0.3 mg/dL (0.1-1.0)
[2025-05-19 10:57] LABS: *AMPHETAMINES SCREEN URINE NEGATIVE (NEGATIVE); *BENZODIAZEPINES SCREEN URINE NEGATIVE (NEGATIVE)
[2025-05-19 10:59] LABS: *BARBITURATES SCREEN URINE NEGATIVE (NEGATIVE); *COCAINE SCREEN URINE NEGATIVE (NEGATIVE); CANNABINOID URINE SCREEN PRESUMPTIVE POSITIVE (NEGATIVE); ECSTASY MDMA SCREEN URINE NEGATIVE (NEGATIVE); METHADONE URINE SCREEN NEGATIVE (NEGATIVE); OPIATES URINE SCREEN NEGATIVE (NEGATIVE); PHENCYCLIDINE URINE SCREEN NEGATIVE (NEGATIVE)
[2025-05-19] MEDS: BUDESONIDE 0.5MG/2ML NEB HHN SCH (20:30)
[2025-05-20] VITALS (12 sets, daily range): BP systolic 109–136; BP diastolic 81–97; PULSE 79–123; RESP 15–26; TEMP 36.6–37.2; O2SAT 92–98
[2025-05-20 06:01] LABS: BASOPHILS % 0.2 % (0.0-2.0); EOSINOPHILS % 0.0 % (0.0-5.0); HEMATOCRIT. 41.0 % (42.0-52.0); HEMOGLOBIN. 13.5 g/dL (14.0-18.0); LYMPHOCYTES % 8.9 % (20.0-50.0); MEAN PLATELET VOLUME 8.0 fl (7.4-10.4); MONOCYTES % 3.9 % (2.0-8.0); NEUTROPHILS % 87.0 % (40.0-76.0); PLATELET 418 x1000/uL (130-400); RED BLOOD CELL COUNT 4.65 mill/uL (4.7-6.1); RED CELL DISTRIBUTION WIDTH 14.9 % (11.6-14.6)
[2025-05-20 06:24] LABS: CREATININE 0.8 mg/dL (0.6-1.3); UREA NITROGEN BLOOD 11 mg/dL (9-23)
[2025-05-21] VITALS (9 sets, daily range): BP systolic 112–134; BP diastolic 80–96; PULSE 72–111; RESP 12–23; TEMP 36.3–36.7; O2SAT 93–98
[2025-05-21 07:46] LABS: BASOPHILS % 0.1 % (0.0-2.0); CREATININE 0.8 mg/dL (0.6-1.3); EOSINOPHILS % 0.0 % (0.0-5.0); HEMATOCRIT. 42.9 % (42.0-52.0); HEMOGLOBIN. 13.9 g/dL (14.0-18.0); LYMPHOCYTES % 11.1 % (20.0-50.0); MEAN PLATELET VOLUME 8.0 fl (7.4-10.4); MONOCYTES % 3.2 % (2.0-8.0); NEUTROPHILS % 85.6 % (40.0-76.0); PLATELET 420 x1000/uL (130-400); RED BLOOD CELL COUNT 4.79 mill/uL (4.7-6.1); RED CELL DISTRIBUTION WIDTH 15.3 % (11.6-14.6)
[2025-05-21 07:47] LABS: UREA NITROGEN BLOOD 11 mg/dL (9-23)
[2025-05-21] MEDS: METHYLPREDNISOLONE SOD SUCC 40MG/ML (ACT-O-VIAL) IV SCH (21:13)
[2025-05-21] MEDS: GUAIFENESIN/DM 600MG/30MG ER TAB 12HR PO SCH (21:14)
[2025-05-21] MEDS: DOCUSATE SODIUM 100MG CAPSULE PO PRN (21:21)
[2025-05-22] VITALS (10 sets, daily range): BP systolic 112–136; BP diastolic 71–100; PULSE 87–118; RESP 16–21; TEMP 36.1–37.3; O2SAT 90–98
[2025-05-22 05:53] LABS: CREATININE 0.7 mg/dL (0.6-1.3); UREA NITROGEN BLOOD 12 mg/dL (9-23)
[2025-05-22 06:06] LABS: BASOPHILS % 0.3 % (0.0-2.0); EOSINOPHILS % 0.0 % (0.0-5.0); HEMATOCRIT. 42.4 % (42.0-52.0); HEMOGLOBIN. 13.9 g/dL (14.0-18.0); LYMPHOCYTES % 12.2 % (20.0-50.0); MEAN PLATELET VOLUME 7.8 fl (7.4-10.4); MONOCYTES % 2.0 % (2.0-8.0); NEUTROPHILS % 85.5 % (40.0-76.0); PLATELET 399 x1000/uL (130-400); RED BLOOD CELL COUNT 4.80 mill/uL (4.7-6.1); RED CELL DISTRIBUTION WIDTH 15.1 % (11.6-14.6)
[2025-05-22] MEDS ORDERED: IPRA3AMP9 NEB (14:11)
[2025-05-22] MEDS ORDERED: METH4TAB95 MT (14:12)
[2025-05-23] VITALS (7 sets, daily range): BP systolic 117–138; BP diastolic 68–89; PULSE 70–81; RESP 18–19; TEMP 36–36.6; O2SAT 95–98
[2025-05-24] VITALS: BP 170/97; PULSE 103; RESP 21; TEMP 36.2; O2SAT 96
[2025-05-24 04:00] VITALS: BP 190/101; PULSE 86; RESP 16; TEMP 36.3; O2SAT 86
[2025-05-24 04:30] VITALS: BP 124/80; PULSE 86; RESP 16; TEMP 36.3; O2SAT 86
[2025-05-24] MEDS: CLONIDINE 0.1MG TABLET PO PRN (05:55)
[2025-05-24 08:00] VITALS: BP 127/80; PULSE 80; RESP 18; TEMP 36.5; O2SAT 95
[2025-05-24 12:00] VITALS: BP 129/80; PULSE 99; RESP 18; TEMP 36.4; O2SAT 96
[2025-05-24 15:10] VITALS: BP 129/80; PULSE 99; RESP 18; TEMP 97.5
== END 2025-05-24 16:00 | disposition home or self-care (01) | DRG 133 ==
LOC: ER 11:26 → 5EST 13:19 → EDBEDREQ 13:26 → EDBEDREQTM 13:26 → 6WST 05-22 10:55
PROVIDERS: ADMIT Internal Medicine; ATTEND Internal Medicine
PROC: 5A09357 Assistance with Respiratory Ventilation, Less than 24 Consecutive Hours, Continuous Positive Airway Pressure (ICD-10-PCS; principal; 2025-05-18)
DX: J96.01 Acute respiratory failure with hypoxia (principal); J45.901 Unspecified asthma with (acute) exacerbation; E66.9 Obesity, unspecified; Z68.41 Body mass index [BMI] 40.0-44.9, adult; R74.01 Elevation of levels of liver transaminase levels; R00.0 Tachycardia, unspecified; F12.90 Cannabis use, unspecified, uncomplicated
CPT/HCPCS: 36415; 71045; 80048; 80053; 80076; 80305; 84484; 85025; 93005; 94070; 94640; 94660; 94664; 99291; A4606; J1308; J1650; J2405; J2919; J3475; J7626